=== PATIENT | female | born 1950 | race Caucasian/White ===

== ENCOUNTER 2016-08-21 15:36 | Inpatient (IN) | payer OTHER, MEDICAID ==
[~2016-08-21] VITALS: Ht 170.1 cm; Wt 76.3 kg
--- NOTE | ~2016-08-21 | CON ---
[place], [place] REPORT OF CONSULTATION NAME: MYRNA KAPOOR UNIT #: [id number] ROOM: 411 DOCTOR: KENYATTA CEE MD BIRTHDATE: [birth year] DOS: 08/22/2016 REASON FOR CONSULTATION: Dizziness. HISTORY OF PRESENT ILLNESS: The patient is a 66-year-old woman who has no previously documented cardiac disease. She does have a history of diabetes, which has been present since 2002. She also has a history of tacky palpitations for which she takes atenolol and diltiazem. She was in her normal state of health until about 2 weeks ago when she began having "dizzy spells." These come and go. When they happen, she feels like she and the room are spinning or moving. It is associated with nausea and vomiting. The spells are not brought on by any specific stimuli and resolved spontaneously. There is no associated headache, palpitations or syncope. She states when she has the spells, she stumbles and falls to either side. She attributes this to her sugar being low, but has not necessarily measured it every time she is dizzy. Her symptoms worsened; therefore, she came to the hospital yesterday. She was noted to be in acute renal failure. Her baseline creatinine of 1.36 had risen to 2.27. Thus far, there are no other acute changes. PAST MEDICAL HISTORY: 1. Type 2 diabetes mellitus since 2002. 2. History of renal insufficiency. The patient's baseline creatinine is 1.36. 3. Tacky palpitations. 4. The chart indicates that she has had hypertension, although she denies this. 5. Hyperlipidemia. 6. 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 7. Peripheral neuropathy. MEDICATIONS: Prior to admission include atenolol 25 mg daily, diltiazem 120 mg daily, gabapentin 800 mg t.i.d., lisinopril 40 mg daily, omeprazole 20 mg daily, oxycodone with acetaminophen 1 or 2 tablets b.i.d., Levemir insulin 65 units subcutaneously at bedtime and Humalog insulin 25 units subcutaneously b.i.d. ALLERGIES: She lists allergies to SULFA DRUGS and MORPHINE. FAMILY HISTORY: The patient's mother is still alive. Her father at age 72 from a brain tumor. There is no family history of early coronary artery disease. REVIEW OF SYSTEMS: The patient denies diplopia or loss of vision. She denies focal weakness. She does admit to ataxia and falling to one side. She denies syncope, but has had nausea and vomiting. She denies hemoptysis or hematemesis. She denies focal weakness. She denies fevers, chills, sweats or recent weight change. She denies polydipsia or polyuria. She denies change in bowel or bladder habits. She denies blood in the urine or stools. She denies any peripheral edema. She denies leg cramping. She denies heat or cold intolerance. The remainder of the review of systems is negative except as noted above. [place], [place] REPORT OF CONSULTATION NAME: MYRNA KAPOOR UNIT #: [id number] ROOM: [facility] DOCTOR: KENYATTA CEE MD BIRTHDATE: [birth year] SOCIAL HISTORY: The patient was a smoker, but quit several years ago. She does not consume excessive amounts of alcohol. PHYSICAL EXAMINATION: GENERAL: The patient is a well-nourished white female who is awake, alert and oriented. Currently, she feels well. VITAL SIGNS: Pulse is 87 and regular, blood pressure is 168/72. She is afebrile. She weighs 76.3 kg and has a body mass index of 26.4. HEENT: Normocephalic, atraumatic. Extraocular muscles are intact. Sclerae are clear. Pupils are equal, round and react to light. The oral mucosa is moist. Tongue is midline. NECK: Supple. She has no jugular distention. Carotids are full. I heard no bruits. She had no neck or supraclavicular masses. LUNGS: Respirations are unlabored. Her chest is clear to auscultation and percussion. She had no presacral edema or chest wall tenderness. CARDIOVASCULAR: Heart had a regular rhythm. She had a fourth heart sound, but no third heart sound or murmur. The PMI was not displaced. She had no precordial heave, lift or thrill. ABDOMEN: Soft and normoactive without masses, organomegaly or bruits. There was no significant tenderness. EXTREMITIES: Showed no clubbing, cyanosis or edema. Peripheral pulses are easily palpated bilaterally. She had no palpable cords in her legs and no Homans sign. Orthostatic vital signs have not yet been done. An echocardiogram has been requested, but also has not yet been done. IMPRESSION: "Dizziness." The patient describes the sensation that she is moving or the room is moving and she also describes nausea and vomiting with this. The symptoms are most rishi to vertigo rather than vasovagal or cardiac in origin. 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 Thus far, the monitor shows sinus rhythm with an occasional premature ventricular contraction. We will be getting a carotid ultrasound to evaluate for carotid and vertebral vascular problems. A CT scan of the head was negative, but an MRI may be more sensitive to subtle changes. We will check orthostatic blood pressures as noted above. I will follow her with her other physicians for the time being. We thank Dr. Garcia for asking our advice regarding her care. [place], [place] REPORT OF CONSULTATION NAME: MYRNA KAPOOR UNIT #: [id number] ROOM: 411 DOCTOR: KENYATTA CEE MD BIRTHDATE: [birth year] KENYATTA CEE MD CM:CONSTR:REPORT OF CONSULTATION 1518 08/23/16 0659 interface
--- NOTE | ~2016-08-21 | PR ---
[place], [place] PROGRESS NOTE NAME: MYRNA KAPOOR UNIT #: [id number] ROOM: 411 DOCTOR: LEONEL JOHNSON MD BIRTHDATE: [birth year] DOS: 08/24/2016 CARDIOLOGY FOLLOWUP VISIT NOTE REASON FOR VISIT: Palpitations and dizziness. SUBJECTIVE: The patient is sitting on the side of the bed. Denies any chest pain or palpitations. No dizziness, no edema. She is anticipating discharge home and she had a carotid ultrasound done and awaiting for a cardiac ultrasound. Denies any chest pain, edema or dizziness. No nausea, vomiting. No fever and chills, no PND, no orthopnea. REVIEW OF SYSTEMS: Review of the 8 systems negative except as mentioned above. PHYSICAL EXAMINATION: VITAL SIGNS: Blood pressure 160/59, pulse 68, respiratory rate 20. GENERAL: Alert, comfortable, in no acute distress. HEAD AND NECK: Pupils are round, equal. No jaundice. Tongue was moist and pharynx clear. NECK: Supple. No distended veins. The patient had a mild carotid bruit. CHEST: Symmetrical. LUNGS: Clear to auscultation with good air entry bilaterally. HEART: Regular rhythm, no S3. Grade 1/6 systolic murmur. ABDOMEN: Bowel sounds normal. EXTREMITIES: Showed no edema. Distal pulses are palpable. SKIN: Warm and dry. No cyanosis, no clubbing. NEUROLOGIC: The patient is alert, oriented. No focal neurologic deficit. RECTAL: Deferred. GENITOURINARY: Deferred. IMPRESSION: 1. Intermittent palpitations, currently stable, no significant tachyarrhythmias. 2. Mild dizziness, stable. 3. Acute renal insufficiency, monitor renal functions. 4. Carotid bruits. Carotid Doppler is pending. RECOMMENDATIONS: 1. Continue current medication. 2. Monitor heart rate and blood pressures. 3. If 2D echo is unremarkable, she can be discharged home from the cardiac standpoint and we will follow her as outpatient. [place], [place] PROGRESS NOTE NAME: MYRNA KAPOOR UNIT #: [id number] ROOM: 411 DOCTOR: LEONEL JOHNSON MD BIRTHDATE: [birth year] LEONEL JOHNSON MD CM:FRAN [phone] LEONEL JOHNSON MD 08/25/161852 interface
--- NOTE | ~2016-08-21 | EKG ---
[place], [place] ELECTROCARDIOGRAM REPORT NAME: MYRNA KAPOOR UNIT #: [id number] ROOM: 411 DOCTOR: KENYATTA CEE MD BIRTHDATE: [birth year] DOS: 08/21/2016 TIME: 1710 Normal sinus rhythm with occasional PVC, rate 72. Left atrial enlargement. Abnormal electrocardiogram. KENYATTA CEE MD CM:EKGRPT:ELECTROCARDIOGRAM REPORT 13 09 KENYATTA CEE MD
--- NOTE | ~2016-08-21 | WRIGHTHP ---
[place], [place] PATIENT HISTORY AND PHYSICAL EXAM NAME: MYRNA KAPOOR [facility] #: [id number] UNIT #: [id number] ROOM: 411 DOCTOR: KRISTIN FRASER MD BIRTHDATE: [birth year] DOS: 08/22/2016 HISTORY OF PRESENT ILLNESS: The patient has been admitted to the hospital last night with history of dizziness for the last 2 weeks off and on, progressively getting worse. The patient has also insulin-dependent diabetes and she was feeling weakness, nausea and vomiting, came to the Emergency Department from where she is admitted to the hospital. PAST MEDICAL HISTORY: The patient has history of closed head injury, contact dermatitis, contusion of the left side ribs, diabetic ketoacidosis, hypoglycemia, hypotension, rashes, sepsis, thrombocytopenia and UTI. SURGICAL HISTORY: The patient has history of removal of ovary and ankle fusion. MEDICATIONS: The patient is taking the following medications at present: Lisinopril 40 mg daily, diltiazem 120 mg daily, insulin 25 units 3 times daily, atenolol 25 mg daily, insulin Humalog 65 units at bedtime, oxycodone 1 tablet 4 hours p.r.n., omeprazole daily, gabapentin 800 mg 3 times daily. SOCIAL HISTORY: The patient does not drink, does not smoke. PHYSICAL EXAMINATION: GENERAL: The patient is conscious, alert and oriented. VITAL SIGNS: Her blood pressure 140/60, pulse is 74. HEENT: ENT examination unremarkable. NECK: No glandular enlargement in neck. Trachea is central. Neck movements is not causing any distress to the patient. Carotid pulsation is normal. HEART: Regular, no murmur. LUNGS: Clear. No creps or rhonchi heard. ABDOMEN: Soft. Liver and spleen not palpable. No area of tenderness. EXTREMITIES: No mass palpable. NEUROLOGIC: No localized neurological deficit observed. LABORATORY DATA: Her chem profile shows BUN 39, creatinine 2.27 indicating renal failure. GFR is 21, which is low. Glucose is 109. Other values are fairly normal. Her CBC is fairly normal, but RBC 3.79, which is slightly low. Hematocrit is 35.6, which is also low. Acetone level is negative. Urine examination shows 1+ bacteria, 1+ leukocytes. The patient had chest x-ray done in Emergency which shows no active disease. DIAGNOSES: Syncopal attack with dizziness and feeling of marked weakness, elevated blood pressure, renal failure, hyperchloremia, insulin-dependent diabetes mellitus and chronic pain. PLAN OF TREATMENT: The patient will be admitted to the hospital to try to find the cause of her dizziness. We will control her blood sugar and we will control her diabetes. CT scan of the head was done, which shows no acute intracranial pathology, chronic small vessel ischemic changes. Troponin levels on 2 different occasions is normal. CBC showed hemoglobin 11.8, hematocrit 34.5. Basic metabolic profile today showed glucose is 95, BUN 31, creatinine 1.61, [place], [place] PATIENT HISTORY AND PHYSICAL EXAM NAME: MYRNA KAPOOR UNIT #: [id number] ROOM: 411 DOCTOR: KRISTIN FRASER MD BIRTHDATE: [birth year] which is slightly better than before. KRISTIN FRASER MD CM:HISPHYS:PATIENT HISTORY AND PHYSICAL EXAMINATION 0815 0904 KRISTIN FRASER MD 08/24/16 0126 interface
--- NOTE | ~2016-08-21 | PR ---
[place], [place] PROGRESS NOTE NAME: MYRNA KAPOOR UNIT #: [id number] ROOM: 411 DOCTOR: KRISTIN FRASER MD BIRTHDATE: [birth year] DOS: SUBJECTIVE: The patient has been admitted to the hospital with dizziness for the last 2 weeks with nausea and difficulty in breathing. She is feeling much better today. She is able to eat and drink without any nausea or vomiting and she denies having any dizziness, no chest pain, no difficulty in breathing and is feeling much better today. Her troponin level on 3 different occasions has been normal. Her CBC showed some hypochromic anemia. Basic metabolic profile shows BUN 31, creatinine 1.61, which is much better than before. Hemoglobin 8.8, which is quite high, B12 and folic acid are normal. EKG is normal. The patient has been seen by Dr. Paulino and according to him her dizziness may be due to vertigo and high blood pressure, but he did not show any cardiac acute region for her to have that feeling and has ordered for her carotid duplex scan. Urine culture and sensitivity is growing heavy growth of gram-negative bacteria. OBJECTIVE: VITAL SIGNS: Her blood pressure is 144/82, pulse 72, respirations 18, temperature 98.3. HEART: Regular. CHEST: Clear. ABDOMEN: Soft. KRISTIN FRASER MD CM:PNTRANS [phone] KRISTIN FRASER MD 08/23/162031 interface
--- NOTE | ~2016-08-21 | PR ---
[place], [place] PROGRESS NOTE [id number] #: [id number] ROOM: 411 DOCTOR: KENYATTA CEE MD BIRTHDATE: [birth year] DOS: 08/23/2016 SUBJECTIVE: The patient was seen at her bedside today 08/23/2016 for followup of her complaints of palpitations and dizziness. She is a 66-year-old woman who has had no previously documented cardiac disease. She has been treated for diabetes since 2002 and has a long history of palpitations and tachycardia for which she takes atenolol and diltiazem. About 2 weeks prior to this admission, she began having "dizzy spells" by which she means feeling of unsteadiness and like the room is spinning. She denied actual syncope. She did have associated nausea and vomiting. Since her symptoms were worsening, she came into the hospital. She was noted to be in acute renal failure with creatinine as high as 2.27. Since admission, her creatinine has fallen to 1.61. Her atenolol and diltiazem were placed on hold. The monitor did not show any significant arrhythmias, but her blood pressure did go up considerably. Her atenolol and diltiazem are being reintroduced and today she feels well without any lightheadedness or dizziness. PHYSICAL EXAMINATION: VITAL SIGNS: Today, her pulse is 72 and regular, blood pressure 144/82, she is afebrile. She weighs 76.3 kilograms with a body mass index 26.4. HEENT: Normocephalic, atraumatic. Extraocular muscles are intact. Sclerae are clear. Pupils are equal, round and reactive to light. The oral mucosa is moist. Tongue is midline. NECK: Supple. She has no jugular distention. Carotids are full. I heard no bruits. She had no neck or supraclavicular masses. LUNGS: Respirations are unlabored. CHEST: Clear to auscultation and percussion. HEART: Has a regular rhythm with a fourth heart sound, but no third heart sound or murmur. EXTREMITIES: Showed no edema. She does seem to be clinically feeling better, but the etiology of her symptoms is not yet apparent. An echocardiogram and carotid ultrasound are still pending. As noted previously, a CT scan of her head was negative, but an MRI may be more sensitive to subtle changes that could cause vertebrobasilar insufficiency or vertigo. PLAN: We will continue to monitor her in the hospital while we await the results of the rest of her studies. I thank Dr. Garcia for asking our advice regarding the management of this patient. [place], [place] PROGRESS NOTE NAME: MYRNA KAPOOR UNIT #: [id number] ROOM: 411 DOCTOR: KENYATTA CEE MD BIRTHDATE: [birth year] KENYATTA CEE MD CM:PNTRANS [phone] [id number] KENYATTA CEE MD 08/24/168 interface
[~2016-08-21 15:36] MED LIST: ATENOLOL; ATENOLOL25 MG PO; CARDIZEM120 MG PO; CEPHALEXIN500 M1 PO; CIPROFLOXACIN500 MG PO; HUMALOG 751 UNIT/0.0; HUMALOG100 U/ML SC; KENALOG 0.1%80 GM PO; Kenalog 0.5% Cr15 GM T; LANTUS100 U/ML SC; LEVAQUIN750 M1 PO; LEVEMIR10 ML SC; LISINOPRIL40 MG PO; METFORMIN1000 MG PO; NEURONTIN800 MG PO; PERCOCET 325 MG1 TA2 PO; PRAVACHOL40 MG PO; PREDNISONE10 MG PO; VISTARIL25 MG PO
[2016-08-21 16:06] VITALS: BP 147/68
[2016-08-21] MEDS ORDERED: GABAPENTIN800 MG PO (16:07)
[2016-08-21] MEDS ORDERED: OMEPRAZOLE D/R20 MG PO (16:07)
[2016-08-21 16:16] VITALS: BP 146/60
[2016-08-21 16:40] LABS: BASO # 0.1 10*3/uL (0.0-0.1); BASO % 0.7 % (0.0-1.0); EOS # 0.1 10*3/uL (0.0-0.4); EOS % 0.7 % (1.0-4.0); HEMATOCRIT 35.6 % (37.0-47.0); HEMOGLOBIN 12.3 g/dl (12.0-16.0); LYMPH # 2.6 10*3/uL (1.3-4.4); LYMPH % 24.3 % (27.0-41.0); MEAN CELL VOLUME 93.9 fl (81.0-99.0); MEAN CORPUSCULAR HGB 32.5 pg (27.0-31.0); MEAN CORPUSCULAR HGB CONC 34.6 g/dl (33.0-37.0); MONO # 0.8 10*3/uL (0.1-1.0); MONO % 7.6 % (3.0-9.0); NEUT % 66.3 % (47.0-73.0); PLATELET COUNT AUTOMATED 138 10*3/uL (130-400); RED BLOOD COUNT 3.79 10*6/uL (4.10-5.10); RED CELL DISTRI WIDTH 12.8 % (0-14.5); WHITE BLOOD COUNT 10.5 10*3/uL (4.8-10.8)
[2016-08-21 16:51] LABS: PROTHROMBIN TIME 10.9 SECONDS (9.0-12.4)
[2016-08-21 17:07] LABS: ALBUMIN 3.7 gm/dl (3.1-4.5); BILIRUBIN, TOTAL 0.6 mg/dl (0.2-1.0); BUN 39 mg/dl (7-24); CARBON DIOXIDE 26 mmol/L (21-32); CHLORIDE 108 mmol/L (98-107); EST GLOM FILT AFRICAN AMERICAN 25 ml/min; GLUCOSE 109 mg/dL (65-99); POTASSIUM 4.9 mmol/L (3.5-5.1); SGOT/AST 33 IU/L (3-35); SGPT/ALT 26 U/L (12-78); SODIUM 143 mmol/L (136-145); TOTAL PROTEIN 7.7 gm/dL (6.4-8.2)
[2016-08-21 17:12] LABS: ALKALINE PHOSPHATASE 98 U/L (45-117)
[2016-08-21 17:13] LABS: TROPONIN I < 0.015 ng/ml (<0.045)
[2016-08-21 18:09] VITALS: BP 140/52
[2016-08-21 18:52] LABS: BILIRUBIN NEGATIVE (NEGATIVE); BLOOD NEGATIVE (NEGATIVE); CLARITY CLEAR (CLEAR); COLOR YELLOW (YELLOW); GLUCOSE NEGATIVE (NEGATIVE); KETONE NEGATIVE (NEGATIVE); LEUKO ESTERASE 1+ (NEGATIVE); NITRITE NEGATIVE (NEGATIVE); PROTEIN TRACE (NEGATIVE); UROBILINOGEN 0.2 E.U./dl (0.2-1.0)
[2016-08-21 19:32] LABS: BACTERIA 1+; RBC 0-2 rbc/hpf (0-2); WBC 31-40 wbc/hpf (0-5)
[2016-08-21 19:33] LABS: URINE REFLEX COMMENT YES (NO)
[2016-08-21 21:13] VITALS: BP 146/60
[2016-08-21 21:33] VITALS: BP 157/54
[2016-08-22] VITALS (8 sets, daily range): BP systolic 143–205; BP diastolic 56–95
[2016-08-22 07:02] LABS: BASO # 0.1 10*3/uL (0.0-0.1); BASO % 0.9 % (0.0-1.0); EOS # 0.2 10*3/uL (0.0-0.4); EOS % 2.4 % (1.0-4.0); HEMATOCRIT 34.5 % (37.0-47.0); HEMOGLOBIN 11.8 g/dl (12.0-16.0); LYMPH % 43.7 % (27.0-41.0); MEAN CELL VOLUME 94.3 fl (81.0-99.0); MEAN CORPUSCULAR HGB 32.2 pg (27.0-31.0); MEAN CORPUSCULAR HGB CONC 34.2 g/dl (33.0-37.0); MEAN PLATELET VOLUME 14.1 fl (9.6-12.3); MONO # 0.6 10*3/uL (0.1-1.0); MONO % 8.6 % (3.0-9.0); NEUT # 3.1 10*3/uL (2.3-7.9); NEUT % 44.3 % (47.0-73.0); PLATELET COUNT AUTOMATED 119 10*3/uL (130-400); RED BLOOD COUNT 3.66 10*6/uL (4.10-5.10); RED CELL DISTRI WIDTH 12.6 % (0-14.5)
[2016-08-22 07:35] LABS: MAGNESIUM 1.8 mg/dL (1.5-2.1); PHOSPHOROUS 3.2 mg/dL (2.5-4.9); POTASSIUM 4.2 mmol/L (3.5-5.1)
[2016-08-22 07:42] LABS: FREE T4 0.87 ng/dl (0.76-1.46); THYROID STIM HORMONE (HS) 1.03 uIU/ml (0.358-4.75)
[2016-08-22 08:23] LABS: HEMOGLOBIN A1c 8.8 % (4.8-5.6)
[2016-08-22 08:41] LABS: FOLIC ACID 19.76 ng/mL (>5.38)
[2016-08-23 04:00] VITALS: BP 186/90
[2016-08-23 08:00] VITALS: BP 144/82
[2016-08-23 12:00] VITALS: BP 142/78
[2016-08-23 16:00] VITALS: BP 156/70
[2016-08-23 20:00] VITALS: BP 182/82
[2016-08-23 23:53] VITALS: BP 174/66
[2016-08-24 08:00] VITALS: BP 155/63
[2016-08-24 12:00] VITALS: BP 160/59
[2016-08-24 16:00] VITALS: BP 145/51
[2016-08-24] MEDS ORDERED: DILTIAZEM CD240 MG PO (16:07)
[2016-08-24] MEDS ORDERED: ASPIRIN ADULT L81 M2 PO (16:07)
[2016-08-24] MEDS ORDERED: CIPRO500 MG PO (16:25)
== END 2016-08-24 16:18 | disposition home or self-care (01) | DRG 70 ==
LOC: ED 15:36 → EDHOLD 18:52 → 4E 18:52
PROVIDERS: Internal Medicine; Nurse Practitioner Family
DX: G93.40 Encephalopathy, unspecified (principal); N17.0 Acute kidney failure with tubular necrosis; E87.0 Hyperosmolality and hypernatremia; N39.0 Urinary tract infection, site not specified; E11.22 Type 2 diabetes mellitus with diabetic chronic kidney disease; E87.8 Other disorders of electrolyte and fluid balance, not elsewhere classified; E11.65 Type 2 diabetes mellitus with hyperglycemia; I12.9 Hypertensive chronic kidney disease with stage 1 through stage 4 chronic kidney disease, or unspecified chronic kidney disease; N18.3 Chronic kidney disease, stage 3 (moderate); R42 Dizziness and giddiness; R01.1 Cardiac murmur, unspecified; E78.5 Hyperlipidemia, unspecified; Z88.2 Allergy status to sulfonamides; Z88.6 Allergy status to analgesic agent; Z82.49 Family history of ischemic heart disease and other diseases of the circulatory system; Z84.89 Family history of other specified conditions; Z79.4 Long term (current) use of insulin; Z87.891 Personal history of nicotine dependence; Z90.721 Acquired absence of ovaries, unilateral; Z79.1 Long term (current) use of non-steroidal anti-inflammatories (NSAID); Z79.899 Other long term (current) drug therapy

== ENCOUNTER 2016-08-26 11:43 | Emergency (ER) | payer OTHER, MEDICAID ==
[~2016-08-26 11:43] MED LIST changes: +ASPIRIN ADULT L81 M2 PO; +CIPRO500 MG PO; +DILTIAZEM CD240 MG PO; +GABAPENTIN800 MG PO; +OMEPRAZOLE D/R20 MG PO
[2016-08-26 11:56] LABS: BASO # 0.1 10*3/uL (0.0-0.1); BASO % 0.8 % (0.0-1.0); EOS # 0.2 10*3/uL (0.0-0.4); EOS % 1.6 % (1.0-4.0); HEMATOCRIT 31.8 % (37.0-47.0); HEMOGLOBIN 10.6 g/dl (12.0-16.0); LYMPH # 2.6 10*3/uL (1.3-4.4); LYMPH % 27.8 % (27.0-41.0); MEAN CELL VOLUME 95.5 fl (81.0-99.0); MEAN CORPUSCULAR HGB 31.8 pg (27.0-31.0); MEAN CORPUSCULAR HGB CONC 33.3 g/dl (33.0-37.0); MEAN PLATELET VOLUME 12.7 fl (9.6-12.3); MONO # 0.8 10*3/uL (0.1-1.0); MONO % 8.7 % (3.0-9.0); NEUT # 5.6 10*3/uL (2.3-7.9); NEUT % 60.8 % (47.0-73.0); PLATELET COUNT AUTOMATED 146 10*3/uL (130-400); RED BLOOD COUNT 3.33 10*6/uL (4.10-5.10); RED CELL DISTRI WIDTH 12.9 % (0-14.5); WHITE BLOOD COUNT 9.2 10*3/uL (4.8-10.8)
[2016-08-26] MEDS ORDERED: CARDIZEM CD240 M1 PO (11:57)
[2016-08-26] MEDS ORDERED: LISINOPRIL20 MG PO (11:57)
[2016-08-26] MEDS ORDERED: PRAVACHOL20 MG PO (11:57)
[2016-08-26] MEDS ORDERED: PERCOCET 325 MG1 TA5 PO (11:58)
[2016-08-26] MEDS ORDERED: CLARITIN10 MG PO (11:58)
[2016-08-26] MEDS ORDERED: Oscal,Oyster S500 MG PO (11:58)
[2016-08-26] MEDS ORDERED: NEURONTIN800 MG PO (11:58)
[2016-08-26] MEDS ORDERED: HUMALOG KW200 UNIT/1 SQ (11:59)
[2016-08-26] MEDS ORDERED: LEVEMIR FLEX100 U/ML SC (12:00)
[2016-08-26] MEDS ORDERED: PRILOSEC20 M1 PO (12:00)
[2016-08-26] MEDS ORDERED: TRULICITY0.75 MG/0. SC (12:00)
[2016-08-26] MEDS ORDERED: TENORMIN25 MG PO (12:00)
[2016-08-26] MEDS ORDERED: CIPRO500 MG PO (12:01)
[2016-08-26 12:12] LABS: ALBUMIN 3.2 gm/dl (3.1-4.5); ALKALINE PHOSPHATASE 93 U/L (45-117); BILIRUBIN, TOTAL 0.4 mg/dl (0.2-1.0); BUN 24 mg/dl (7-24); CARBON DIOXIDE 24 mmol/L (21-32); CHLORIDE 111 mmol/L (98-107); EST GLOM FILT AFRICAN AMERICAN 31 ml/min; GLUCOSE 178 mg/dL (65-99); POTASSIUM 4.3 mmol/L (3.5-5.1); SGOT/AST 34 IU/L (3-35); SGPT/ALT 40 U/L (12-78); SODIUM 146 mmol/L (136-145); TOTAL PROTEIN 6.7 gm/dL (6.4-8.2)
[2016-08-26 12:13] LABS: INTERNATIONAL NORM RATIO 1.1 (2.0-3.5); PROTHROMBIN TIME 11.5 SECONDS (9.0-12.4)
[2016-08-26 12:19] LABS: TROPONIN I < 0.015 ng/ml (<0.045)
[2016-08-26 13:21] LABS: BILIRUBIN NEGATIVE (NEGATIVE); BLOOD NEGATIVE (NEGATIVE); CLARITY CLOUDY (CLEAR); COLOR YELLOW (YELLOW); GLUCOSE TRACE (NEGATIVE); KETONE NEGATIVE (NEGATIVE); LEUKO ESTERASE 1+ (NEGATIVE); NITRITE NEGATIVE (NEGATIVE); PROTEIN 1+ (NEGATIVE); SPECIFIC GRAVITY >= 1.030 (1.005-1.030); UROBILINOGEN 0.2 E.U./dl (0.2-1.0)
[2016-08-26 13:28] LABS: URINE REFLEX COMMENT YES (NO)
[2016-08-26 13:29] LABS: BACTERIA TRACE; EPITHELIAL CELLS 16-20; MUCOUS 2+; WBC 21-30 wbc/hpf (0-5)
[2016-08-26 15:25] VITALS: BP 151/61
== END 2016-08-26 16:13 | disposition home or self-care (01) ==
LOC: ED 11:43
PROVIDERS: Emergency Medicine
DX: R00.1 Bradycardia, unspecified (principal); R42 Dizziness and giddiness; I95.1 Orthostatic hypotension; I12.9 Hypertensive chronic kidney disease with stage 1 through stage 4 chronic kidney disease, or unspecified chronic kidney disease; E11.9 Type 2 diabetes mellitus without complications; N18.3 Chronic kidney disease, stage 3 (moderate); E78.5 Hyperlipidemia, unspecified; Z79.4 Long term (current) use of insulin; Z88.2 Allergy status to sulfonamides; Z88.6 Allergy status to analgesic agent; Z79.82 Long term (current) use of aspirin; Z79.899 Other long term (current) drug therapy

== ENCOUNTER → 2016-10-19 | Outpatient (CLI) | payer OTHER, MEDICAID ==
[~2016-10-19] MED LIST changes: +CARDIZEM CD240 M1 PO; +CLARITIN10 MG PO; +HUMALOG KW200 UNIT/1 SQ; +LEVEMIR FLEX100 U/ML SC; +LISINOPRIL20 MG PO; +Oscal,Oyster S500 MG PO; +PERCOCET 325 MG1 TA5 PO; +PRAVACHOL20 MG PO; +PRILOSEC20 M1 PO; +TENORMIN25 MG PO; +TRULICITY0.75 MG/0. SC
== END | disposition home or self-care (01) ==
LOC: RAD 10:45
DX: M47.892 Other spondylosis, cervical region (principal); M48.02 Spinal stenosis, cervical region

== ENCOUNTER → 2016-11-20 | Outpatient (CLI) | payer OTHER, MEDICAID | END | disposition home or self-care (01) | LOC: MAMMO 08:38 | DX: Z12.31 Encounter for screening mammogram for malignant neoplasm of breast (principal); M19.012 Primary osteoarthritis, left shoulder ==

== ENCOUNTER → 2016-12-25 | Outpatient (CLI) | payer OTHER, MEDICAID | END | disposition home or self-care (01) | LOC: US 12:30 → LAB 12:53 → US 13:30 | DX: I70.293 Other atherosclerosis of native arteries of extremities, bilateral legs (principal); E11.22 Type 2 diabetes mellitus with diabetic chronic kidney disease; N18.3 Chronic kidney disease, stage 3 (moderate) ==

== ENCOUNTER → 2016-12-28 | Outpatient (CLI) | payer OTHER, MEDICAID ==
[2016-12-28 12:55] LABS: BASO # 0.1 10*3/uL (0.0-0.1); BASO % 0.6 % (0.0-1.0); EOS # 0.1 10*3/uL (0.0-0.4); EOS % 1.4 % (1.0-4.0); HEMATOCRIT 35.7 % (37.0-47.0); HEMOGLOBIN 12.4 g/dl (12.0-16.0); LYMPH # 2.5 10*3/uL (1.3-4.4); LYMPH % 24.7 % (27.0-41.0); MEAN CELL VOLUME 94.2 fl (81.0-99.0); MEAN CORPUSCULAR HGB 32.7 pg (27.0-31.0); MEAN CORPUSCULAR HGB CONC 34.7 g/dl (33.0-37.0); MEAN PLATELET VOLUME 13.3 fl (9.6-12.3); MONO # 0.7 10*3/uL (0.1-1.0); MONO % 6.7 % (3.0-9.0); NEUT # 6.6 10*3/uL (2.3-7.9); NEUT % 66.1 % (47.0-73.0); PLATELET COUNT AUTOMATED 181 10*3/uL (130-400); RED BLOOD COUNT 3.79 10*6/uL (4.10-5.10); RED CELL DISTRI WIDTH 12.6 % (0-14.5)
[2016-12-28 13:15] LABS: ALBUMIN 3.5 gm/dl (3.1-4.5); POTASSIUM 4.4 mmol/L (3.5-5.1)
[2016-12-28 13:20] LABS: CREATININE 1.98 mg/dL (0.55-1.02); TOTAL PROTEIN 7.7 gm/dL (6.4-8.2)
== END | disposition home or self-care (01) ==
LOC: LAB 12:21
PROVIDERS: Internal Medicine
DX: E53.8 Deficiency of other specified B group vitamins (principal)

== ENCOUNTER 2017-02-10 15:18 | Inpatient (IN) | payer OTHER, MEDICAID ==
[~2017-02-10] VITALS: Ht 170.2 cm; Wt 70.8 kg
--- NOTE | ~2017-02-10 | CON ---
[place], [place] REPORT OF CONSULTATION NAME: MYRNA KAPOOR UNIT #: [id number] ROOM: 522 DOCTOR: KENDRA MONTANA ED.D (INEZ) BIRTHDATE: [birth year] DOS: 02/11/2017 HISTORY OF PRESENT ILLNESS: The patient is a 66-year-old female referred by Dr. Garcia for competency evaluation. At the present time, this patient is on the 5th floor at [facility]. She states she is a and she has a son and grandson. She last worked at [employer] and [employer]. Dr. Garcia is her family physician. PAST MEDICAL HISTORY: Pertinent for recent CVA, diabetes mellitus, chronic kidney disease, hypertension. MEDICATIONS: Include Lipitor, aspirin, calcium carbonate, Plavix, Cardizem, insulin, lisinopril, omeprazole, and trazodone. SOCIAL HISTORY: She does not use any tobacco related products and drinks no alcoholic beverages. PHYSICAL EXAMINATION: This patient was awake, alert and oriented to person and place. She has difficulty due to her aphasia, getting numbers out when in conversation. She had no difficulty whatsoever cognitively with the exception of issues related to numbers and days. She appears to be competent to make informed healthcare decisions and seems to be able to understand the risks and benefits of treatment. She does defer to her son, Ralph, for many of her decisions and she states she will make all decisions, but will solicit his input. DIAGNOSES: 1. 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 2. Depressive disorder, not otherwise specified. RECOMMENDATIONS: In my opinion, this patient is competent to make informed healthcare decisions. Thank you very much for this consult. KENDRA MONTANA ED.D CM:CONSTR:REPORT OF CONSULTATION 1337 02/11/17 1510 interface
--- NOTE | ~2017-02-10 | EKG ---
[place], [place] ELECTROCARDIOGRAM REPORT NAME: MYRNA KAPOOR UNIT #: [id number] ROOM: 522 DOCTOR: MAK MIRZA MD BIRTHDATE: [birth year] DOS: 02/10/2017 TIME: 15:47:53 RATE AND RHYTHM: Normal sinus rhythm at 73 beats per minute. [place] interval is 146 milliseconds, QRS duration is 76 milliseconds. Corrected QT interval is 430 milliseconds. QRS axis is 2. IMPRESSION: Normal EKG. MAK MIRZA MD CM:EKGRPT:ELECTROCARDIOGRAM REPORT 0944 1006 MAK MIRZA MD
[~2017-02-10 15:18] MED LIST changes: +LEVEMIR FL100 UNIT/1 SQ; -LEVEMIR FLEX100 U/ML SC
[2017-02-10 15:23] VITALS: BP 154/78
[2017-02-10 15:49] LABS: BASO % 0.6 % (0.0-1.0); EOS # 0.2 10*3/uL (0.0-0.4); HEMATOCRIT 28.9 % (37.0-47.0); HEMOGLOBIN 9.6 g/dl (12.0-16.0); LYMPH # 2.3 10*3/uL (1.3-4.4); LYMPH % 33.5 % (27.0-41.0); MEAN CELL VOLUME 94.1 fl (81.0-99.0); MEAN CORPUSCULAR HGB 31.3 pg (27.0-31.0); MEAN CORPUSCULAR HGB CONC 33.2 g/dl (33.0-37.0); MEAN PLATELET VOLUME 12.4 fl (9.6-12.3); MONO # 0.4 10*3/uL (0.1-1.0); MONO % 6.5 % (3.0-9.0); NEUT # 3.8 10*3/uL (2.3-7.9); NEUT % 56.1 % (47.0-73.0); PLATELET COUNT AUTOMATED 147 10*3/uL (130-400); RED BLOOD COUNT 3.07 10*6/uL (4.10-5.10); WHITE BLOOD COUNT 6.7 10*3/uL (4.8-10.8)
[2017-02-10 15:59] LABS: ACT PARTIAL THROMBO TIME 24.1 SECONDS (20.8-31.5); INTERNATIONAL NORM RATIO 1.1 (2.0-3.5)
[2017-02-10 16:00] VITALS: BP 177/66
[2017-02-10 16:05] LABS: ALBUMIN 3.3 gm/dl (3.1-4.5); ALKALINE PHOSPHATASE 92 U/L (45-117); BUN 31 mg/dl (7-24); CHLORIDE 109 mmol/L (98-107); CREATININE 1.33 mg/dL (0.55-1.02); POTASSIUM 4.2 mmol/L (3.5-5.1); SGOT/AST 22 IU/L (3-35); SGPT/ALT 21 U/L (12-78); SODIUM 142 mmol/L (136-145); TOTAL PROTEIN 7.2 gm/dL (6.4-8.2)
[2017-02-10 16:11] LABS: TROPONIN I < 0.015 ng/ml (<0.045)
[2017-02-10 18:00] VITALS: BP 183/64
--- NOTE | 2017-02-10 18:00 | NUR ---
A 66, admitted to , under the services of MAK Caicedo MD with a diagnosis of GAIT INSTABILITY,OTHER GENERAL ISCHEMIC CEREBRALVASCULAR DISEASE. Chief complaint is FELL AT HOME, DIZZINESS.. Patient arrived via bed from ER. Monitor applied. Initial assessment completed. Vital signs taken and recorded. MAK CAICEDO MD notified of admission to the unit. Orders received. See assessment for past medical history, medications and allergies. Patient and/or family oriented to unit. [facility] visitation policy reviewed. Clothing/patient valuable form completed. EDUARD ANTONY R
[2017-02-10] MEDS ORDERED: LIPITOR80 MG PO (18:26)
[2017-02-10] MEDS ORDERED: LABETALOL HCL100 MG PO (18:26)
[2017-02-10] MEDS ORDERED: TRAZODONE50 MG PO (18:26)
[2017-02-10] MEDS ORDERED: PLAVIX75 M1 PO (18:26)
[2017-02-10] MEDS ORDERED: ASPIRIN81 M1 PO (18:27)
[2017-02-10] MEDS ORDERED: NEURONTIN400 MG PO (18:27)
[2017-02-10 18:30] VITALS: BP 174/66
--- NOTE | 2017-02-10 18:34 | NUR ---
CALLED DR. BECERRA AWARE PT IN ROOM. CALL AFTER 7 FOR ANY OTHER ORDERS.
--- NOTE | 2017-02-10 19:06 | NUR ---
CALLED DR. ANDRE MADE AWARE PT BP ON ADMISSION TO FLOOR AND MEDS UPDATED AND ALSO ROOM SMELLED OF ETOH.
[2017-02-10 20:00] VITALS: BP 177/66
[2017-02-11] VITALS: BP 156/51
--- NOTE | 2017-02-11 03:36 | NUR ---
PATIENT MEDICATED WITH TYLENOL PER PRN ORDER FOR C/O LEG PAIN. RATED PAIN A 5/10 WITH 10 BEING THE WORST SEE EMAR. REINFORCED USE OF CALL LIGHT.
[2017-02-11 06:39] LABS: BASO % 0.6 % (0.0-1.0); EOS # 0.2 10*3/uL (0.0-0.4); EOS % 3.3 % (1.0-4.0); HEMATOCRIT 27.9 % (37.0-47.0); HEMOGLOBIN 9.4 g/dl (12.0-16.0); LYMPH # 1.8 10*3/uL (1.3-4.4); LYMPH % 37.4 % (27.0-41.0); MEAN CELL VOLUME 95.9 fl (81.0-99.0); MEAN CORPUSCULAR HGB 32.3 pg (27.0-31.0); MEAN CORPUSCULAR HGB CONC 33.7 g/dl (33.0-37.0); MEAN PLATELET VOLUME 12.7 fl (9.6-12.3); MONO # 0.4 10*3/uL (0.1-1.0); NEUT # 2.4 10*3/uL (2.3-7.9); NEUT % 49.5 % (47.0-73.0); PLATELET COUNT AUTOMATED 133 10*3/uL (130-400); RED BLOOD COUNT 2.91 10*6/uL (4.10-5.10); RED CELL DISTRI WIDTH 12.8 % (0-14.5); WHITE BLOOD COUNT 4.9 10*3/uL (4.8-10.8)
[2017-02-11 06:58] LABS: ALBUMIN 2.9 gm/dl (3.1-4.5); CREATININE 1.33 mg/dL (0.55-1.02); PHOSPHOROUS 3.5 mg/dL (2.5-4.9); POTASSIUM 4.1 mmol/L (3.5-5.1); TOTAL PROTEIN 6.4 gm/dL (6.4-8.2)
[2017-02-11 07:04] LABS: FREE T4 0.85 ng/dl (0.76-1.46); THYROID STIM HORMONE (HS) 2.06 uIU/ml (0.358-4.75)
[2017-02-11 07:16] LABS: ACT PARTIAL THROMBO TIME 24.4 SECONDS (20.8-31.5)
[2017-02-11 07:48] LABS: VITAMIN D, 25-HYDROXY 30.9 ng/mL (30-100)
[2017-02-11 08:00] VITALS: BP 162/68
--- NOTE | 2017-02-11 08:00 | NUR ---
HOB ELEVATED, EASY RESPIRATIONS WITH SKIN W/D. PT ORIETED TO SELF & PLACE BUT CANNOT ANSWER HER YEAR OR CURRENT YEAR. FOLLOWS DIRECTIONS EASILY. RT SIDED WEAKNESS NOTED. BEDALARM IN USE FOR PT SAFETY. SEE SHIFT ASSESSMENT.
--- NOTE | 2017-02-11 08:30 | NUR ---
Heavy Repairer in to talk to patient. Patient states lives at HOME with HER SON AND GRAND SON6. There are 6 steps in the home. Physician: DR MIRZA Pharmacy: [facility] [place] Home health services: [facility],, [facility]. PT AND OT Patient's level of ADLs: MODERATE ASSIST Patient has working utilities: YES DME: NONE Follow-up physician's appointment after d/c: PREFERS TO MAKE HER OWN APPT Does patient want to access PORTAL?: Discharge plan HOME. [facility] PT HAS A FREIND THAT COMES IN DAILY TO HELP HER WELL. DOES NOT WANT SNF STAY.
--- NOTE | 2017-02-11 10:22 | NUR ---
PHYSICAL THERAPY PAtient evaluated on 5, full evaluation to follow. Continue with PT as per plan of care with fall, recent CVA with right hemiparesis, neglect and balance/safety issues precautions. PAtient insists on home for d/c. Will require / family assist and complete home health services. PAtient is moderate complexiyt via chart review, tests and evaluation: [id number]. Thank you for this referral. Earnestine Parr,PT
--- NOTE | 2017-02-11 10:41 | NUR ---
Occupational Therapy evaluation completed this date on with full eval to follow. Precautions include fall risk, impulsive, left eye contusion, IV LUE, right hemiparesis, moderate complexity level, word finding difficulties. Recommend OT per POC and home health OT,PT,SP upon d/c and 24 hr supervision and assist in the home. Thank you for this referral. Lyn Berger OTR/L
--- NOTE | 2017-02-11 10:49 | NUR ---
This nurse was asked to evaluate patients left should and left eye. Left shoulder is pink and blanchable. Left eye is ecchymotic. No open areas noted. No drainage noted.
--- NOTE | 2017-02-11 10:56 | NUR ---
PT DID NOT KNOW NAME OF HOME HEALTH COMPANY AND ASKS THAT I CALL HER SON LINDSEY AT [phone]. I SPOKE WITH LINSDEY AND HER COMPANY IS [employer]. LINDSEY STATES NO FURTHER NEEDS AT HOME [facility].
--- NOTE | 2017-02-11 11:09 | NUR ---
DR MONTANA HERE & NOTIFIED OF CONSULT.
[2017-02-11 12:00] VITALS: BP 189/72
--- NOTE | 2017-02-11 12:54 | NUR ---
DR MIRZA IN TO SEE PT & DISCUSS PLAN OF CARE.
--- NOTE | 2017-02-11 12:58 | NUR ---
DR MIRZA NOTIFIED OF [facility]'S FINDINGS ON MRI. NO NEW ORDERS.
--- NOTE | 2017-02-11 13:09 | NUR ---
DR ADAMSON & DR MIRZA VIEWED MRI REPORT.
--- NOTE | 2017-02-11 13:22 | NUR ---
PHYSICAL THERAPY Oksana was seen this PM 1:1 for her therapy treatment, Pt supine in bed. Transfer supine/sit, sitting balance CG X 1, sit/stand and standing balance MIN A X 1. Gait total 100' X 2, with verbal cueing to just slow down for her gait, balance safety, Verbal cueing for her turns. Asend/descend stairs 20 steps total with MOD STORY EDITOR X 1, and cueing for stair safety. Pt back supine in bed, call light. Pt is a cva with right neglect and just needs to slow down for her safety. POPEYE DAVID MERCHANDISE SUPERVISOR.
[2017-02-11 16:00] VITALS: BP 145/63
[2017-02-11 20:00] VITALS: BP 118/72
--- NOTE | 2017-02-11 22:30 | NUR ---
SON CALLED IN STATED HE WAS LEAVING WORK AND WOULD BE HERE SHORTLY TO TAKE MOTHER HOME.
--- NOTE | 2017-02-11 23:30 | NUR ---
CALL TO SON LINDSEY. NO ANSWER. MESSAGE LEFT ON ANSWERING SERVICE NOTIFIED SON THAT DOORS WILL BE LOCKED AND HE WILL HAVE TO COME THROUGH ER ENTRANCE TO CIVIL RIGHTS ATTORNEY HIS MOTHER.
[2017-02-12] VITALS: BP 158/76
--- NOTE | 2017-02-12 03:18 | NUR ---
SON HERE TO IMPROVEMENT ENGINEER PATIENT. Discharge instructions reviewed with patient/family. Patient receptive and verbalizes understanding.Written instructions given to patient/family. PAU GARCIA
--- NOTE | 2017-02-12 08:54 | NUR ---
Patient was discharged to home to resume home health with [facility]. Faxed order and clincals.
--- NOTE | 2017-02-12 15:07 | NUR ---
PHYSICAL THERAPY CO-SIGN I approve of the Phyical Therapy notes written above. WIL STUART PT
== END 2017-02-12 03:15 | disposition home health service (06) | DRG 65 ==
LOC: ED 15:18 → EDHOLD 16:57 → 5E 16:57
PROVIDERS: Emergency Medicine; Internal Medicine; ADMIT Internal Medicine
DX: I63.9 Cerebral infarction, unspecified (principal); E44.0 Moderate protein-calorie malnutrition; E11.22 Type 2 diabetes mellitus with diabetic chronic kidney disease; E87.0 Hyperosmolality and hypernatremia; E11.40 Type 2 diabetes mellitus with diabetic neuropathy, unspecified; E83.42 Hypomagnesemia; E87.8 Other disorders of electrolyte and fluid balance, not elsewhere classified; D50.9 Iron deficiency anemia, unspecified; F32.9 Major depressive disorder, single episode, unspecified; N18.3 Chronic kidney disease, stage 3 (moderate); E53.8 Deficiency of other specified B group vitamins; R41.89 Other symptoms and signs involving cognitive functions and awareness; I12.9 Hypertensive chronic kidney disease with stage 1 through stage 4 chronic kidney disease, or unspecified chronic kidney disease; E78.2 Mixed hyperlipidemia; Z86.73 Personal history of transient ischemic attack (TIA), and cerebral infarction without residual deficits; Z88.2 Allergy status to sulfonamides; Z88.5 Allergy status to narcotic agent; Z87.440 Personal history of urinary (tract) infections; Z79.4 Long term (current) use of insulin; Z90.722 Acquired absence of ovaries, bilateral; Z98.1 Arthrodesis status; Z79.82 Long term (current) use of aspirin; Z79.899 Other long term (current) drug therapy; Z68.24 Body mass index [BMI] 24.0-24.9, adult

== ENCOUNTER → 2017-03-30 | Outpatient (CLI) | payer OTHER, MEDICAID ==
[~2017-03-30] MED LIST changes: +ASPIRIN81 M1 PO; +LABETALOL HCL100 MG PO; +LIPITOR80 MG PO; +NEURONTIN400 MG PO; +PLAVIX75 M1 PO; +TRAZODONE50 MG PO
== END | disposition home or self-care (01) ==
LOC: US 14:57
DX: M79.89 Other specified soft tissue disorders (principal)

== ENCOUNTER → 2017-05-21 | Outpatient (CLI) | payer OTHER, MEDICAID | END | disposition home or self-care (01) | LOC: LAB 17:03 | DX: R56.9 Unspecified convulsions (principal) ==

== ENCOUNTER → 2017-05-28 | Outpatient (CLI) | payer OTHER, MEDICAID ==
[2017-05-28 16:25] LABS: BASO # 0.1 10*3/uL (0.0-0.1); EOS # 0.3 10*3/uL (0.0-0.4); EOS % 4.4 % (1.0-4.0); HEMOGLOBIN 10.6 g/dl (12.0-16.0); LYMPH # 1.8 10*3/uL (1.3-4.4); LYMPH % 29.9 % (27.0-41.0); MEAN CELL VOLUME 93.7 fl (81.0-99.0); MEAN CORPUSCULAR HGB CONC 34.2 g/dl (33.0-37.0); MEAN PLATELET VOLUME 12.8 fl (9.6-12.3); MONO # 0.5 10*3/uL (0.1-1.0); MONO % 7.8 % (3.0-9.0); NEUT # 3.4 10*3/uL (2.3-7.9); NEUT % 56.6 % (47.0-73.0); PLATELET COUNT AUTOMATED 131 10*3/uL (130-400); RED BLOOD COUNT 3.31 10*6/uL (4.10-5.10); RED CELL DISTRI WIDTH 13.7 % (0-14.5); WHITE BLOOD COUNT 5.9 10*3/uL (4.8-10.8)
[2017-05-28 16:41] LABS: ALBUMIN 3.4 gm/dl (3.1-4.5); CREATININE 1.42 mg/dL (0.55-1.02); TOTAL PROTEIN 7.3 gm/dL (6.4-8.2)
[2017-05-28 16:43] LABS: FREE T4 0.67 ng/dl (0.76-1.46)
[2017-05-28 16:47] LABS: THYROID STIM HORMONE (HS) 3.23 uIU/ml (0.358-4.75)
[2017-05-28 17:09] LABS: FERRITIN 136.2 ng/mL (10.0-291.0); VITAMIN D, 25-HYDROXY 13.9 ng/mL (30-100)
== END | disposition home or self-care (01) ==
LOC: LAB 15:55
PROVIDERS: Internal Medicine
DX: I10 Essential (primary) hypertension (principal); R06.2 Wheezing; R06.02 Shortness of breath; E11.29 Type 2 diabetes mellitus with other diabetic kidney complication; D64.9 Anemia, unspecified

== ENCOUNTER → 2017-06-11 | Outpatient (CLI) | payer OTHER, MEDICAID ==
[2017-06-12 07:07] LABS: HEPATITIS B SURFACE AG Negative (Negative); HEPATITIS C VIRUS ANTIBODY <0.1 s/co (0.0-0.9)
== END | disposition home or self-care (01) ==
LOC: US 06-08 07:30 → LAB 08:23 → US 08:30
PROVIDERS: Internal Medicine
DX: R53.1 Weakness (principal); R74.8 Abnormal levels of other serum enzymes

== ENCOUNTER 2017-08-06 14:42 | Emergency (ER) | payer OTHER, MEDICAID ==
[~2017-08-06] VITALS: Ht 170.1 cm; Wt 59.0 kg
[2017-08-06 14:54] VITALS: BP 125/56
[2017-08-06] MEDS ORDERED: NORCO 5-325 TA1 EACH PO (15:59)
== END 2017-08-06 15:57 | disposition home or self-care (01) ==
LOC: ED 14:42
DX: S70.01XA Contusion of right hip, initial encounter (principal); Z90.89 Acquired absence of other organs; Z79.82 Long term (current) use of aspirin; Z79.899 Other long term (current) drug therapy; Z79.4 Long term (current) use of insulin; Z88.2 Allergy status to sulfonamides; Z88.5 Allergy status to narcotic agent; W01.198A Fall on same level from slipping, tripping and stumbling with subsequent striking against other object, initial encounter; Y93.89 Activity, other specified; Y92.89 Other specified places as the place of occurrence of the external cause; Y99.9 Unspecified external cause status

== ENCOUNTER → 2017-09-03 | Outpatient (CLI) | payer OTHER, MEDICAID ==
[~2017-09-03] MED LIST changes: +NORCO 5-325 TA1 EACH PO
[2017-09-03 13:37] LABS: BASO % 0.6 % (0.0-1.0); EOS # 0.2 10*3/uL (0.0-0.4); EOS % 3.9 % (1.0-4.0); HEMATOCRIT 24.6 % (37.0-47.0); HEMOGLOBIN 8.4 g/dl (12.0-16.0); LYMPH # 1.6 10*3/uL (1.3-4.4); MEAN CELL VOLUME 92.8 fl (81.0-99.0); MEAN CORPUSCULAR HGB 31.7 pg (27.0-31.0); MEAN CORPUSCULAR HGB CONC 34.1 g/dl (33.0-37.0); MEAN PLATELET VOLUME 12.5 fl (9.6-12.3); MONO # 0.4 10*3/uL (0.1-1.0); MONO % 7.9 % (3.0-9.0); NEUT # 3.2 10*3/uL (2.3-7.9); NEUT % 58.2 % (47.0-73.0); PLATELET COUNT AUTOMATED 112 10*3/uL (130-400); RED BLOOD COUNT 2.65 10*6/uL (4.10-5.10); RED CELL DISTRI WIDTH 13.1 % (0-14.5); WHITE BLOOD COUNT 5.4 10*3/uL (4.8-10.8)
[2017-09-03 13:43] LABS: ALBUMIN 3.7 gm/dl (3.1-4.5); CREATININE 1.32 mg/dL (0.55-1.02); POTASSIUM 5.4 mmol/L (3.5-5.1); TOTAL PROTEIN 7.1 gm/dL (6.4-8.2)
[2017-09-03 13:51] LABS: PHENYTOIN (DILANTIN) 17.7 ug/ml (10-20); THYROID STIM HORMONE (HS) 2.21 uIU/ml (0.358-4.75)
== END ==
LOC: LAB 12:43
PROVIDERS: Internal Medicine
DX: R53.83 Other fatigue (principal); R56.9 Unspecified convulsions

== ENCOUNTER → 2017-10-22 | Outpatient (CLI) | payer OTHER, MEDICAID ==
[2017-10-22 13:46] LABS: CREATININE 1.44 mg/dL (0.55-1.02); POTASSIUM 4.8 mmol/L (3.5-5.1)
== END | disposition home or self-care (01) ==
LOC: LAB 12:46
PROVIDERS: Internal Medicine
DX: E87.5 Hyperkalemia (principal); E11.65 Type 2 diabetes mellitus with hyperglycemia

== ENCOUNTER → 2017-12-31 | Day surgery (SDC) | payer MEDICARE ==
[2017-12-27 11:56] LABS: BASO % 0.5 % (0.0-1.0); EOS # 0.2 10*3/uL (0.0-0.4); EOS % 2.7 % (1.0-4.0); HEMATOCRIT 27.4 % (37.0-47.0); HEMOGLOBIN 9.3 g/dl (12.0-16.0); LYMPH # 1.3 10*3/uL (1.3-4.4); LYMPH % 22.1 % (27.0-41.0); MEAN CELL VOLUME 97.2 fl (81.0-99.0); MEAN CORPUSCULAR HGB CONC 33.9 g/dl (33.0-37.0); MONO # 0.4 10*3/uL (0.1-1.0); MONO % 6.7 % (3.0-9.0); NEUT # 4.1 10*3/uL (2.3-7.9); NEUT % 67.8 % (47.0-73.0); PLATELET COUNT AUTOMATED 96 10*3/uL (130-400); RED BLOOD COUNT 2.82 10*6/uL (4.10-5.10); RED CELL DISTRI WIDTH 11.9 % (0-14.5)
[2017-12-27 12:19] LABS: ACT PARTIAL THROMBO TIME 24.9 SECONDS (20.8-31.5); INTERNATIONAL NORM RATIO 1.1 (2.0-3.5)
[2017-12-27 12:20] LABS: ALBUMIN 3.4 gm/dl (3.1-4.5); BILIRUBIN, DIRECT 0.1 mg/dL (0.0-0.2); CREATININE 1.36 mg/dL (0.55-1.02); POTASSIUM 4.3 mmol/L (3.5-5.1); TOTAL PROTEIN 6.6 gm/dL (6.4-8.2)
[2017-12-27 13:07] LABS: BILIRUBIN NEGATIVE (NEGATIVE); BLOOD 1+ (NEGATIVE); CLARITY SL CLOUDY (CLEAR); COLOR YELLOW (YELLOW); GLUCOSE NEGATIVE (NEGATIVE); KETONE NEGATIVE (NEGATIVE); LEUKO ESTERASE 1+ (NEGATIVE); NITRITE NEGATIVE (NEGATIVE); PH 5.5 (5.0-9.0); UROBILINOGEN 0.2 E.U./dl (0.2-1.0)
[2017-12-27 13:17] LABS: BACTERIA 4+; EPITHELIAL CELLS 30-35; WBC 51-100 wbc/hpf (0-5)
[~2017-12-31] VITALS: Ht 167.6 cm; Wt 62.6 kg
[2017-12-31] VITALS (12 sets, daily range): BP systolic 135–200; BP diastolic 64–89
--- NOTE | ~2017-12-31 | O ---
[place], [place] OPERATIVE NOTE NAME: [id number] UNIT #: [id number] ROOM: DOCTOR: CALEB CHAVEZ MD BIRTHDATE: [birth year] DOS: 12/31/2017 PREOPERATIVE DIAGNOSIS: Symptomatic gallstones. POSTOPERATIVE DIAGNOSIS: Symptomatic gallstones. PROCEDURE: Laparoscopic cholecystectomy. SURGEON: Caleb Chavez MD SWAGER OPERATOR: CARMEN. ANESTHESIA: General with endotracheal intubation. INDICATIONS: This is a 67-year-old lady who is here for an outpatient laparoscopic cholecystectomy for symptomatic gallstones. The procedure and its complications were explained to the patient in detail preoperatively. Complications that were discussed included but were not limited to bleeding, infection, hematoma/seroma/abscess formation, biloma formation, inadvertent injury to the common bile duct and inadvertent injury to surrounding vital structures, incisional hernia formation and prolonged pain. She agreed to proceed. DESCRIPTION OF PROCEDURE: After identifying the patient, the patient was brought to the operating suite and laid in supine position. After induction of general anesthesia, the parts were then painted and draped in the usual sterile fashion. A time-out procedure was called in the usual fashion. An incision was made below the umbilicus in a transverse fashion. The skin and the subcutaneous tissue were incised. The fascia was incised vertically and 2 stay sutures were taken on either side and the peritoneum was opened and a 12 mm Tahir port was introduced and a pneumoperitoneum was created. Under direct vision, an epigastric incision of 10 mm and two 5 mm incisions were made in the right upper quadrant and appropriate size ports were introduced. The gallbladder was retracted superiorly and laterally. The cystic duct and the cystic artery were meticulously dissected until a critical view of safety was obtained and the triangle of Calot was clearly identified. Thereafter, each of these structures were clipped 3 times and cut between the first and the second clip. The gallbladder was then removed from the bed of the gallbladder with the help of electrocautery. It was placed in an EndoCatch bag and removed from the peritoneal cavity and sent for histopathological diagnosis. Hemostasis was achieved in the liver bed with the help of electrocautery. Thereafter, after hemostasis was confirmed, the right upper quadrant and epigastric ports were removed and hemostasis was achieved under direct vision and all these incisions as well. Thereafter, the umbilical port was also removed and the pneumoperitoneum was decompressed. A 0 Vicryl sutures was used to close the fascial defect and thereafter, the skin edges were infiltrated with 1% plain lidocaine and approximated with the help of 4-0 Vicryl in a subcuticular running fashion. Dressings were placed. The patient tolerated the procedure well and was extubated uneventfully and brought back to the recovery room in a stable fashion. There were no complications. Dr. Caleb Chavez, the attending surgeon, [place], [place] OPERATIVE NOTE NAME: MYRNA KAPOOR Dorinda UNIT #: [id number] ROOM: DOCTOR: CALEB CHAVEZ MD BIRTHDATE: [birth year] was present throughout the operating case. Caleb Chavez MD CM:OPRECORD:OPERATIVE NOTE [id number] CALEB CHAVEZ MD 12/31/17 1017 interface
--- NOTE | ~2017-12-31 | EKG ---
[place], [place] ELECTROCARDIOGRAM REPORT NAME: MYRNA KAPOOR UNIT #: [id number] ROOM: DOCTOR: EPIPHANY DRAFT REPORT BIRTHDATE: [birth year] [facility] Test Date: 2017-12-27 Test Time: 12:06:21 Pat Name: MYRNA KAPOOR Department: Room: Gender: F Parking Technician: JUSTINA : 1950 Requested By: SHERRI NOGUERA Order Number: [id number] Reading MD: Jalen Wolfe MD Measurements Intervals Manti Rate: 88 P: 71 ME: 161 QRS: 27 QRSD: 87 T: 40 QT: 375 QTc: 454 Interpretive Statements Sinus rhythm Atrial premature complex Minimal ST depression, lateral leads Electronically Signed On 12-28-2017 4:17:01 PDT by Jalen Wolfe MD CM:EKGRPT:ELECTROCARDIOGRAM REPORT [id number] SHERRI NOGUERA MD EPIPHANY DRAFT REPORT SHERRI NOGUERA MD
== END | disposition home or self-care (01) ==
LOC: SDC 12-27 10:15
PROVIDERS: Surgery
DX: K80.10 Calculus of gallbladder with chronic cholecystitis without obstruction (principal); I10 Essential (primary) hypertension; I25.10 Atherosclerotic heart disease of native coronary artery without angina pectoris; I48.91 Unspecified atrial fibrillation; E11.9 Type 2 diabetes mellitus without complications; M19.90 Unspecified osteoarthritis, unspecified site; E78.5 Hyperlipidemia, unspecified; F32.9 Major depressive disorder, single episode, unspecified; Z86.73 Personal history of transient ischemic attack (TIA), and cerebral infarction without residual deficits; Z87.01 Personal history of pneumonia (recurrent); Z90.710 Acquired absence of both cervix and uterus; Z98.890 Other specified postprocedural states; Z88.8 Allergy status to other drugs, medicaments and biological substances; Z88.2 Allergy status to sulfonamides; Z79.899 Other long term (current) drug therapy; Z87.891 Personal history of nicotine dependence; Z79.891 Long term (current) use of opiate analgesic; Z96.652 Presence of left artificial knee joint; Z90.721 Acquired absence of ovaries, unilateral; Z79.01 Long term (current) use of anticoagulants

== ENCOUNTER → 2018-04-26 | Outpatient (CLI) | payer MEDICARE ==
[2018-04-26 13:58] LABS: CREATININE 1.74 mg/dL (0.55-1.02); POTASSIUM 4.7 mmol/L (3.5-5.1)
== END | disposition home or self-care (01) ==
LOC: LAB 13:00
PROVIDERS: Internal Medicine
DX: E11.29 Type 2 diabetes mellitus with other diabetic kidney complication (principal)

== ENCOUNTER → 2018-09-16 | Outpatient (CLI) | payer MEDICARE | END | disposition home or self-care (01) | LOC: US 16:00 | DX: I73.89 Other specified peripheral vascular diseases (principal); M79.604 Pain in right leg ==

== ENCOUNTER → 2019-02-13 | Outpatient (CLI) | payer MEDICARE ==
[2019-02-13 16:04] LABS: CHOLESTEROL 140 mg/dL (<200); HDL CHOLESTEROL 65 mg/dl (40-60); LDL CHOLESTEROL 59 mg/dL (9-159); TRIGLYCERIDES 80 mg/dl (<150); VLDL CHOLESTEROL 16 mg/dL (6-40)
== END | disposition home or self-care (01) ==
LOC: LAB 14:52
PROVIDERS: Internal Medicine
DX: E11.22 Type 2 diabetes mellitus with diabetic chronic kidney disease (principal); N18.9 Chronic kidney disease, unspecified

== ENCOUNTER → 2019-04-25 | Outpatient (CLI) | payer MEDICARE ==
[2019-04-25 17:14] LABS: BASO % 0.7 % (0.0-1.0); EOS # 0.3 10*3/uL (0.0-0.4); EOS % 4.5 % (1.0-4.0); HEMATOCRIT 25.9 % (37.0-47.0); HEMOGLOBIN 8.6 g/dl (12.0-16.0); LYMPH # 2.1 10*3/uL (1.3-4.4); LYMPH % 35.5 % (27.0-41.0); MEAN CELL VOLUME 98.9 fl (81.0-99.0); MEAN CORPUSCULAR HGB 32.8 pg (27.0-31.0); MEAN CORPUSCULAR HGB CONC 33.2 g/dl (33.0-37.0); MEAN PLATELET VOLUME 12.6 fl (9.6-12.3); MONO # 0.5 10*3/uL (0.1-1.0); MONO % 7.7 % (3.0-9.0); NEUT # 3.1 10*3/uL (2.3-7.9); NEUT % 51.4 % (47.0-73.0); PLATELET COUNT AUTOMATED 131 10*3/uL (130-400); RED BLOOD COUNT 2.62 10*6/uL (4.10-5.10); RED CELL DISTRI WIDTH 13.1 % (0-14.5)
[2019-04-25 17:30] LABS: ALBUMIN 3.3 gm/dl (3.1-4.5); CREATININE 1.86 mg/dL (0.55-1.02); POTASSIUM 4.9 mmol/L (3.5-5.1); TOTAL PROTEIN 6.4 gm/dL (6.4-8.2)
== END ==
LOC: LAB 16:18
PROVIDERS: Internal Medicine
DX: R53.83 Other fatigue (principal)

== ENCOUNTER → 2019-05-15 | Outpatient (CLI) | payer OTHER ==
[2019-05-15 13:18] LABS: BASO % 0.7 % (0.0-1.0); EOS # 0.3 10*3/uL (0.0-0.4); EOS % 4.7 % (1.0-4.0); HEMATOCRIT 26.5 % (37.0-47.0); HEMOGLOBIN 8.6 g/dl (12.0-16.0); LYMPH # 1.6 10*3/uL (1.3-4.4); MEAN CELL VOLUME 101.1 fl (81.0-99.0); MEAN CORPUSCULAR HGB 32.8 pg (27.0-31.0); MEAN CORPUSCULAR HGB CONC 32.5 g/dl (33.0-37.0); MEAN PLATELET VOLUME 12.4 fl (9.6-12.3); MONO # 0.5 10*3/uL (0.1-1.0); MONO % 8.2 % (3.0-9.0); NEUT # 3.1 10*3/uL (2.3-7.9); PLATELET COUNT AUTOMATED 130 10*3/uL (130-400); RED BLOOD COUNT 2.62 10*6/uL (4.10-5.10); RED CELL DISTRI WIDTH 13.3 % (0-14.5); WHITE BLOOD COUNT 5.5 10*3/uL (4.8-10.8)
[2019-05-15 13:25] LABS: CREATININE 2.09 mg/dL (0.55-1.02); POTASSIUM 5.3 mmol/L (3.5-5.1)
[2019-05-15 13:30] LABS: FREE T4 0.7 ng/dl (0.76-1.46)
[2019-05-15 13:36] LABS: THYROID STIM HORMONE (HS) 4.79 uIU/ml (0.358-4.75)
== END | disposition home or self-care (01) ==
LOC: LAB 12:18
PROVIDERS: Internal Medicine
DX: J44.9 Chronic obstructive pulmonary disease, unspecified (principal); Z87.891 Personal history of nicotine dependence

== ENCOUNTER → 2019-06-06 | Outpatient (CLI) | payer OTHER | END | disposition home or self-care (01) | LOC: CARD 00:08 | DX: I08.3 Combined rheumatic disorders of mitral, aortic and tricuspid valves (principal); R06.02 Shortness of breath ==

== ENCOUNTER → 2019-10-20 | Outpatient (CLI) | payer OTHER ==
[2019-10-20 14:20] LABS: ALBUMIN 3.2 gm/dl (3.1-4.5); CREATININE 2.24 mg/dL (0.55-1.02); POTASSIUM 4.8 mmol/L (3.5-5.1); TOTAL PROTEIN 6.5 gm/dL (6.4-8.2)
[2019-10-21 07:06] LABS: HEPATITIS B SURFACE AB Non Reactive (.); HEPATITIS B SURFACE AG Negative (Negative)
[2019-10-21 11:09] LABS: COMPLEMENT C4 25 mg/dL (14-44)
[2019-10-21 15:10] LABS: FREE KAPPA LIGHT CHAINS 46.9 mg/L (3.3-19.4); FREE LAMBDA LIGHT CHAINS 38.8 mg/L (5.7-26.3); KAPPA/LAMBDA RATIO 1.21 (0.26-1.65)
== END | disposition home or self-care (01) ==
LOC: LAB 13:09
PROVIDERS: Internal Medicine Nephrology
DX: N18.4 Chronic kidney disease, stage 4 (severe) (principal)

== ENCOUNTER → 2020-06-17 | Outpatient (CLI) | payer OTHER ==
[2020-06-17 17:18] LABS: BILIRUBIN Negative (Negative); BLOOD 1+ (Negative); CLARITY Cloudy (Clear); COLOR Yellow (Yellow); GLUCOSE Negative (Negative); KETONE Negative (Negative); LEUKO ESTERASE 2+ (Negative); NITRITE Negative (Negative); SPECIFIC GRAVITY 1.015 (1.001-1.030); UROBILINOGEN 0.2 E.U./dl (0.0-1.0)
[2020-06-17 17:19] LABS: BASO % 0.5 % (0.0-1.0); EOS # 0.2 10*3/uL (0.0-0.4); HEMATOCRIT 27.7 % (37.0-47.0); LYMPH # 1.6 10*3/uL (1.3-4.4); LYMPH % 19.7 % (27.0-41.0); MEAN CELL VOLUME 100.4 fl (81.0-99.0); MEAN CORPUSCULAR HGB 32.6 pg (27.0-31.0); MEAN CORPUSCULAR HGB CONC 32.5 g/dl (33.0-37.0); MEAN PLATELET VOLUME 13.5 fl (9.6-12.3); MONO # 0.8 10*3/uL (0.1-1.0); MONO % 10.5 % (3.0-9.0); NEUT # 5.2 10*3/uL (2.3-7.9); NEUT % 66.2 % (47.0-73.0); PLATELET COUNT AUTOMATED 106 10*3/uL (130-400); RED BLOOD COUNT 2.76 10*6/uL (4.10-5.10); RED CELL DISTRI WIDTH 12.5 % (0-14.5); WHITE BLOOD COUNT 7.9 10*3/uL (4.8-10.8)
[2020-06-17 17:28] LABS: WBC 51-100 wbc/hpf (0-5)
[2020-06-17 17:29] LABS: BACTERIA 2+
[2020-06-17 17:49] LABS: CREATININE 2.95 mg/dL (0.55-1.02); TOTAL PROTEIN 6.3 gm/dL (6.4-8.2)
[2020-06-17 17:50] LABS: CHOLESTEROL 86 mg/dL (<200); HDL CHOLESTEROL 25 mg/dl (40-60); LDL CHOLESTEROL 39 mg/dL (9-159); TRIGLYCERIDES 110 mg/dl (<150); VLDL CHOLESTEROL 22 mg/dL (6-40)
[2020-06-17 18:09] LABS: PTH INTACT 60.7 pg/mL (18.5-88.0); VITAMIN D, 25-HYDROXY 30.6 ng/mL (30-100)
[2020-06-18 16:09] LABS: CREATININE,URINE 121.4 mg/dL (Not Estab.)
== END | disposition home or self-care (01) ==
LOC: LAB 16:36
PROVIDERS: Internal Medicine Nephrology; ATTEND Internal Medicine
DX: I21.3 ST elevation (STEMI) myocardial infarction of unspecified site (principal); I12.9 Hypertensive chronic kidney disease with stage 1 through stage 4 chronic kidney disease, or unspecified chronic kidney disease; E11.22 Type 2 diabetes mellitus with diabetic chronic kidney disease; N18.4 Chronic kidney disease, stage 4 (severe); N25.81 Secondary hyperparathyroidism of renal origin

== ENCOUNTER 2021-03-31 16:39 | Emergency (ER) | payer OTHER ==
[~2021-03-31 16:39] MED LIST changes: +CHOLESTYRAMINE P4 GM PO; +CYMBALTA30 MG PO; +DILTIAZEM HCL120 M2 PO; +LABETALOL HCL200 MG PO; +LASIX40 MG PO; +LEVEMIR100 UNIT/1 SC; +PERCOCET 5-3251 EACH PO; +SYNTHROID25 MCG PO; +VIBRAMYCIN100 MG PO; +VITAMIN D350 MCG PO; +ZOLOFT100 MG PO
[2021-03-31 16:45] VITALS: BP 163/47
[2021-03-31 17:10] LABS: BASO % 0.6 % (0.0-1.0); EOS # 0.2 10*3/uL (0.0-0.4); EOS % 3.2 % (1.0-4.0); HEMATOCRIT 26.6 % (37.0-47.0); LYMPH # 1.2 10*3/uL (1.3-4.4); LYMPH % 22.1 % (27.0-41.0); MEAN CELL VOLUME 96.7 fl (81.0-99.0); MEAN CORPUSCULAR HGB 31.6 pg (27.0-31.0); MEAN CORPUSCULAR HGB CONC 32.7 g/dl (33.0-37.0); MEAN PLATELET VOLUME 13.6 fl (9.6-12.3); MONO # 0.4 10*3/uL (0.1-1.0); MONO % 8.2 % (3.0-9.0); NEUT # 3.5 10*3/uL (2.3-7.9); NEUT % 65.5 % (47.0-73.0); PLATELET COUNT AUTOMATED 96 10*3/uL (130-400); RED BLOOD COUNT 2.75 10*6/uL (4.10-5.10); RED CELL DISTRI WIDTH 12.6 % (0-14.5); WHITE BLOOD COUNT 5.4 10*3/uL (4.8-10.8)
[2021-03-31 17:23] LABS: CREATININE 2.54 mg/dL (0.55-1.02); TOTAL PROTEIN 6.3 gm/dL (6.4-8.2)
== END 2021-03-31 21:31 | disposition home or self-care (01) ==
LOC: ED 16:39
PROVIDERS: Nurse Practitioner Family
DX: J90 Pleural effusion, not elsewhere classified (principal); Z20.822 Contact with and (suspected) exposure to COVID-19; E11.22 Type 2 diabetes mellitus with diabetic chronic kidney disease; I12.9 Hypertensive chronic kidney disease with stage 1 through stage 4 chronic kidney disease, or unspecified chronic kidney disease; N18.9 Chronic kidney disease, unspecified

== ENCOUNTER → 2021-06-12 | Outpatient (CLI) | payer OTHER | END | disposition home or self-care (01) | LOC: CARD 11:53 | PROVIDERS: ATTEND Internal Medicine Cardiovascular Disease | DX: I34.0 Nonrheumatic mitral (valve) insufficiency (principal); R94.31 Abnormal electrocardiogram [ECG] [EKG] ==